=== PATIENT | female | born 1960 | race Caucasian/White ===

== ENCOUNTER → 2017-09-07 | Outpatient (CLI) | payer MEDICARE ==
[~2017-09-07] MED LIST: CYCL10TA9 PO; MELO-195 PO; PREG150C PO; TRM50T PO; VNL75T PO
--- NOTE | 2017-09-07 18:20 | Diagnostic Imaging Report ---
Bilateral screening mammogram 2D views with tomosynthesis The current study was also evaluated with a Computer Aided Detection (CAD) system. Indication: Screening. No current complaints stated on the questionnaire. COMPARISON: 10/29/2015. FINDINGS: The breasts are composed of heterogeneously dense parenchyma which may decrease mammographic sensitivity. Benign-appearing calcifications are seen. Allowing for technique and positional differences, no suspicious change is seen. IMPRESSION: No significant change. ACR BI-RADS Category 2: Benign findings. Result letter will be mailed to the patient. Note: At least 10% of breast cancer is not imaged by mammography. Dictated by: Dictated on workstation # [id number]
== END ==
LOC: RAD 14:10
PROVIDERS: ATTEND Family Medicine
DX: Z12.31 Encounter for screening mammogram for malignant neoplasm of breast (principal)
CPT/HCPCS: 77067

== ENCOUNTER → 2018-12-20 | Outpatient (CLI) | payer MEDICARE ==
--- NOTE | 2018-12-21 12:15 | Diagnostic Imaging Report ---
EXAMINATION: Digital mammogram bilateral screening with 3D tomosynthesis with CAD. COMPARISON: This study is compared to the prior exams of 09/07/2017, 10/29/2015, and 10/10/2014. PERSONAL HISTORY: At this time, there are no current complaints. FINDINGS: The fibroglandular tissue in both breasts is heterogeneously dense. This does limit the sensitivity of this exam. In the upper-outer aspect of the right breast approximately 10 cm from the nipple, there is a small group of coarse microcalcifications. These calcifications are most likely benign but they have increased in number since the previous exam. I would recommend that a compression/magnification view be obtained in the ML and CC projections so that these calcifications can be better characterized. The overall appearance of the breasts is otherwise no different. There is no primary or secondary sign of malignancy noted. IMPRESSION: Additional mammographic views of the right breast would be recommended for further study. ACR BI-RADS Category 0: Incomplete. (Needs additional imaging evaluation). Result letter will be mailed to the patient. Note: At least 10% of breast cancer is not imaged by mammography. Dictated by: Dictated on workstation # [id number]
== END ==
LOC: RAD 13:30
PROVIDERS: ATTEND Nurse Practitioner Family
DX: Z12.31 Encounter for screening mammogram for malignant neoplasm of breast (principal)
CPT/HCPCS: 77067

== ENCOUNTER → 2019-01-16 | Outpatient (CLI) | payer MEDICARE ==
--- NOTE | 2019-01-16 14:34 | Diagnostic Imaging Report ---
INDICATION: Right breast calcifications. Patient presents for additional views. COMPARISON: Correlation is made with the screening study from 12/20/2018 as well as the prior mammogram from 09/07/2017. TECHNIQUE: Unilateral right 2D and 3D diagnostic mammography was performed including magnification CC and ML views as well as conventional 90 degree lateral view. The current study was evaluated with a Computer Aided Detection (CAD) system. FINDINGS: Additional views show coarse benign-appearing calcifications in the upper and outer aspect of the right breast at posterior depth. No suspicious pleomorphism is seen. There is no soft tissue mass. IMPRESSION: Benign-appearing calcification in the upper outer right breast at posterior depth. Followup in 6 months is recommended to show continued stability. ACR BI-RADS Category 3: Probably benign findings. Result letter will be mailed to the patient. Note: At least 10% of breast cancer is not imaged by mammography. Dictated by: Dictated on workstation # [id number]
== END ==
LOC: RAD 13:55
PROVIDERS: ATTEND Nurse Practitioner Family
DX: R92.1 Mammographic calcification found on diagnostic imaging of breast (principal)

== ENCOUNTER → 2020-11-21 | Outpatient (CLI) | payer MEDICARE ==
--- NOTE | 2020-11-21 18:17 | Diagnostic Imaging Report ---
INDICATION: Six-month followup right breast calcifications. Correlation is made with prior mammogram 12/20/2018 and 09/07/2017. 2-D and 3-D bilateral diagnostic mammography was performed with CAD. The current study was also evaluated with a Computer Aided Detection (CAD) system. 3-D tomosynthesis was also performed and reviewed. Both breasts are heterogeneously dense, limiting the sensitivity of mammography. Benign calcifications upper outer right breast are stable. No new mass or malignant appearing microcalcifications are seen. Left breast is stable. The axillae are unremarkable. IMPRESSION: Stable bilateral mammograms. There are no mammographic features suspicious for malignancy. ACR BI-RADS Category 2: Benign findings. Result letter will be mailed to the patient. Note: At least 10% of breast cancer is not imaged by mammography. Dictated by: Dictated on workstation # [id number]
== END ==
LOC: RAD 14:15
PROVIDERS: ATTEND Nurse Practitioner
DX: Z87.898 Personal history of other specified conditions (principal)
CPT/HCPCS: 77066; G0279; 77062

== ENCOUNTER → 2022-03-24 | Outpatient (CLI) | payer MEDICARE ==
--- NOTE | 2022-03-24 15:27 | Diagnostic Imaging Report ---
INDICATION: Postmenopausal reading COMPARISON: 12/11/2011 FINDINGS: AP Spine L1-L4: [BMD (g/cm2): 1.078] [T-Score: -1.0] [Z-Score: 0.0] [BMD Previous: 1.147] [BMD % Change: -6.0] LT Hip Neck: [BMD (g/cm2): 0.756] [T-Score: -2.0] [Z-Score: -0.9] LT Hip Total: [BMD (g/cm2):0.899] [T-Score:-0.9] [Z-Score: -0.1] [BMD Previous: 0.993] [BMD % Change: -9.5] RT Hip Neck: [BMD (g/cm2):0.722] [T-Score:-2.3] [Z-Score:-1.2] RT Hip Total: [BMD (g/cm2):0.899] [T-score:-0.9] [Z-Score:-0.1] [BMD Previous:0.984] [BMD % Change:-8.6] *Indicates significant change from prior examination based on 95% confidence level. World Health Organization criteria for BMD interpretation classify patients as Normal (T-score at or above -1.0), Osteopenic (T-score between -1.0 and -2.5) or Osteoporotic (T-score at or below -2.5). LIMITATIONS AND MODIFICATION: None. FRACTURE RISK (FRAX SCORE): The ten year probability of (%): Major Osteoporotic Fracture: [NA] Hip Fracture: [NA] IMPRESSION: 1. Osteopenia (Low bone mass). 2. No significant change in bone mineral density since prior examination. 3. See below National Osteoporosis Foundation guidelines on when to potentially initiate pharmacologic therapy. Based on the National Osteoporosis Foundation Guidelines, pharmacologic treatment should be initiated in any of the following, unless clinical conditions suggest otherwise: * Any patient with prior fragility fracture of the hip or vertebrae. A spine fracture indicates 5X risk for subsequent spine fracture and 2X risk for subsequent hip fracture. * Osteoporosis (T-score <-2.5). * Postmenopausal women and men age 50 and older with low bone mass/osteopenia (T-score between -1.0 and -2.5) by DXA and 10-year major osteoporotic fracture greater than 20% or a 10-year probability of hip fracture greater than 3%. These fracture risks are supplied above in the FRAX score, if applicable. * Clinician judgement and/or patient preferences may indicate treatment for people with 10-year fracture probabilities above or below these levels. Dictated by: Dictated on workstation # [id number]
== END ==
LOC: RAD 13:12
PROVIDERS: ATTEND Nurse Practitioner
DX: M85.80 Other specified disorders of bone density and structure, unspecified site (principal); Z78.0 Asymptomatic menopausal state; Z87.891 Personal history of nicotine dependence
CPT/HCPCS: 77080